=== PATIENT | female | born 1950 | race Caucasian/White ===

== ENCOUNTER 2024-06-16 16:06 | Inpatient (IN) | payer OTHER ==
--- OUTSIDE RECORDS SUMMARY | 2024-06-16 22:06 | XMS REPORT | Continuity of Care Document ---
Author Name Unknown Address [address] [facility]. [address] [place] [address] [facility] [place] Address [address] [facility] [place] [address] Care Team Providers Care Field Hand Name Role Phone LILIANA MCFADDEN Primary Care Physician Unavaila Liliana Quiroga Attending Clinician Unavailab MADISON Fowler Attending Clinician Unavailab MADISON Fowler Attending Clinician Unavailab tavia MeyerF Attending Clinician Unavailable JANET DU Attending Clinician Unavailable Veronica Attending Clinician Unavailable LITA Attending Clinician Unavailable ELEONORA MCFADDEN Attending Clinician Unavaila ishmael MeyerS Attending Clinician Unavailable ALEJANDRA Attending Clinician Unavailable [place] Attending Clinician Unavailable PATITO CHEW Admitting Clinician Unavailable Yosi_F Admitting Clinician Unavailable Veronica Admitting Clinician Unavailable LITA Admitting Clinician Unavailable Yosi_S Admitting Clinician Unavailable ALEJANDRA Admitting Clinician Unavailable [place] Admitting Clinician Unavailable Payers Payer Name Policy Type Policy Number Effective Date Expirati on Date Source MEDICARE PART A \T\ B [id number] 2015 00:00:00 [facility] MEDICARE SUPPLEMENT [id number] 2024 00:00:00 [place] [id number] 2015 00:00:00 [facility] HEALTHCARE OPTIONS (MEDICARE SUPPLEMENT) [id number] 2018 00:00:00 [place] [employer] - RHC - FQHC [id number] 2015 00:00:00 Problems Condition Name Condition Details Condition Category Status Onset Date Resolution Date Last Treatment Date Treating Clinician Comments Source Statins contraindi cated Statins Contraindi cated Problem Active 2021-04 00:00: 00 [facility] Lumbago with sciatica Lumbago with Sciatica Problem Active 11-30 00:00: 00 [facility] Allergies, Adverse Reactions, Alerts Allergy Name Allergy Type Status Severity Reaction(s) Onset Date Inactive Date Treating Clinician Comments Source IODINE DRUG INGREDI Active Unknown-Cmnt 3- 00:00: 00 [facility] TRAMADOL DRUG INGREDI Active Unknown-Cmnt 3- 00:00: 00 [facility] STATINS- HMG-COA REDUCTAS E INHIBITO RS Allergy to substanc e Active Myalgias (muscle pain) [facility] IODINATE D CONTRAST MEDIA Allergy to substanc e Active Moderate severity, Moderate to severe Rash, Respiratory distress [facility] Tramadol Allergy to substanc e Active [facility] Social History Smoking Status Start Date Stop Date Source Former Smoker [facility] Medications Ordered Medication Name Filled Medication Name Start Date Stop Date Current Medication? Ordering Clinician Indication Dosage Frequency Signature (SIG) Comments Components Source escitalopra m 10 mg tablet TAKE ONE (1) TABLET(S) BY MOUTH EVERY MORNING. escitalopra m 10 mg tablet TAKE ONE (1) TABLET(S) BY MOUTH EVERY MORNING. No escitalopr am 10 mg tablet TAKE ONE (1) TABLET(S) BY MOUTH EVERY MORNING. [facility] ezetimibe 10 mg tablet TAKE ONE (1) TABLET(S) BY MOUTH EVERY DAY. ezetimibe 10 mg tablet TAKE ONE (1) TABLET(S) BY MOUTH EVERY DAY. No ezetimibe 10 mg tablet TAKE ONE (1) TABLET(S) BY MOUTH EVERY DAY. [facility] pitavastati n calcium 2 mg tablet TAKE 1 TABLET BY MOUTH EVERY DAY FOR 30 DAYS, FOR HIGH CHOLESTEROL pitavastati n calcium 2 mg tablet TAKE 1 TABLET BY MOUTH EVERY DAY FOR 30 DAYS, FOR HIGH CHOLESTEROL No pitavastat in calcium 2 mg tablet TAKE 1 TABLET BY MOUTH EVERY DAY FOR 30 DAYS, FOR HIGH CHOLESTERO L [facility] Zyrtec 10 mg tablet Take 1 tablet every day by oral route for 90 days. Zyrtec 10 mg tablet Take 1 tablet every day by oral route for 90 days. No 1 Q1D Zyrtec 10 mg tablet Take 1 tablet every day by oral route for 90 days. [facility] azelastine 137 mcg (0.1 %) nasal spray SPRAY 2 SPRAYS EVERY DAY BY INTRANASAL ROUTE AT BEDTIME FOR 30 DAYS, FOR ALLERGIES. azelastine 137 mcg (0.1 %) nasal spray SPRAY 2 SPRAYS EVERY DAY BY INTRANASAL ROUTE AT BEDTIME FOR 30 DAYS, FOR ALLERGIES. No 2spray( s) Q1D azelastine 137 mcg (0.1 %) nasal spray SPRAY 2 SPRAYS EVERY DAY BY INTRANASAL ROUTE AT BEDTIME FOR 30 DAYS, FOR ALLERGIES. [facility] montelukast 10 mg tablet TAKE 1 TABLET BY MOUTH EVERY DAY montelukast 10 mg tablet TAKE 1 TABLET BY MOUTH EVERY DAY No montelukas t 10 mg tablet TAKE 1 TABLET BY MOUTH EVERY DAY [facility] Immunizations Ordered Immunization Name Filled Immunization Name Date Status Comments Source pneumococcal conjugate PCV 13 pneumococcal conjugate PCV 13 Unknown Completed [facility] Influenza vaccine, quadrivalent, adjuvanted Influenza vaccine, quadrivalent, adjuvanted Unknown Completed [facility] influenza, high dose seasonal influenza, high dose seasonal Unknown Completed [facility] influenza, unspecified formulation influenza, unspecified formulation Unknown Completed [facility] influenza nasal, unspecified formulation influenza nasal, unspecified formulation Unknown Completed [facility] influenza, injectable, quadrivalent influenza, injectable, quadrivalent Unknown Completed [facility] Vital Signs Vital Name Observation Time Observation Value Comments S ource BMI (Body Mass Index) 2024-01-28 00:00:00 22.4 kg/m2 [facility] Body Weight 2024-01-28 00:00:00 1896 [oz_av] [facility] BP Systolic 2024-01-28 00:00:00 148 mm[Hg] [facility] Height 2024-01-28 00:00:00 61 [in_i] [facility] BP Diastolic 2024-01-28 00:00:00 78 mm[Hg] [facility] BP Diastolic 2023-10-03 00:00:00 69 mm[Hg] [facility] BP Systolic 2023-10-03 00:00:00 130 mm[Hg] [facility] Body Weight 2023-10-03 00:00:00 2018 [oz_av] [facility] Height 2023-10-03 00:00:00 61 [in_i] [facility] BMI (Body Mass Index) 2023-10-03 00:00:00 23.8 kg/m2 [facility] Body Weight 2023-09-12 00:00:00 1984 [oz_av] [facility] Height 2023-09-12 00:00:00 61 [in_i] [facility] BMI (Body Mass Index) 2023-09-12 00:00:00 23.4 kg/m2 [facility] BP Systolic 2023-07-20 00:00:00 139 mm[Hg] [facility] Height 2023-07-20 00:00:00 61 [in_i] [facility] BMI (Body Mass Index) 2023-07-20 00:00:00 23.1 kg/m2 [facility] Body Weight 2023-07-20 00:00:00 1952 [oz_av] [facility] BP Diastolic 2023-07-20 00:00:00 76 mm[Hg] [facility] BP Systolic 2023-05-28 00:00:00 130 mm[Hg] [facility] BP Diastolic 2023-05-28 00:00:00 67 mm[Hg] [facility] BMI (Body Mass Index) 2023-05-28 00:00:00 23.3 kg/m2 [facility] Body Weight 2023-05-28 00:00:00 1969 [oz_av] [facility] Height 2023-05-28 00:00:00 61 [in_i] [facility] Body Weight 2023-04-25 00:00:00 1927 [oz_av] [facility] BP Systolic 2023-04-25 00:00:00 131 mm[Hg] [facility] BMI (Body Mass Index) 2023-04-25 00:00:00 22.8 kg/m2 [facility] Height 2023-04-25 00:00:00 61 [in_i] [facility] BP Diastolic 2023-04-25 00:00:00 67 mm[Hg] [facility] BP Diastolic 2022-10-11 00:00:00 73 mm[Hg] [facility] Height 2022-10-11 00:00:00 61 [in_i] [facility] BMI (Body Mass Index) 2022-10-11 00:00:00 22.9 kg/m2 [facility] BP Systolic 2022-10-11 00:00:00 113 mm[Hg] [facility] Body Weight 2022-10-11 00:00:00 1937 [oz_av] [facility] BP Diastolic 2022-05-18 00:00:00 80 mm[Hg] [facility] Height 2022-05-18 00:00:00 61 [in_i] [facility] BMI (Body Mass Index) 2022-05-18 00:00:00 22.8 kg/m2 [facility] BP Systolic 2022-05-18 00:00:00 130 mm[Hg] [facility] Body Weight 2022-05-18 00:00:00 1934.4 [oz_av] [facility] BP Diastolic 2022-05-04 00:00:00 79 mm[Hg] [facility] Height 2022-05-04 00:00:00 61 [in_i] [facility] BMI (Body Mass Index) 2022-05-04 00:00:00 23.2 kg/m2 [facility] BP Systolic 2022-05-04 00:00:00 135 mm[Hg] [facility] Body Weight 2022-05-04 00:00:00 1964.8 [oz_av] [facility] BP Diastolic 2022-03-13 00:00:00 84 mm[Hg] [facility] Height 2022-03-13 00:00:00 61 [in_i] [facility] BMI (Body Mass Index) 2022-03-13 00:00:00 23.1 kg/m2 [facility] BP Systolic 2022-03-13 00:00:00 142 mm[Hg] [facility] Body Weight 2022-03-13 00:00:00 1960 [oz_av] [facility] BP Diastolic 2022-03-06 00:00:00 79 mm[Hg] [facility] Height 2022-03-06 00:00:00 61 [in_i] [facility] BMI (Body Mass Index) 2022-03-06 00:00:00 23.3 kg/m2 [facility] BP Systolic 2022-03-06 00:00:00 138 mm[Hg] [facility] Body Weight 2022-03-06 00:00:00 1972 [oz_av] [facility] BP Diastolic 2022-02-28 00:00:00 70 mm[Hg] [facility] Height 2022-02-28 00:00:00 61 [in_i] [facility] BMI (Body Mass Index) 2022-02-28 00:00:00 23.3 kg/m2 [facility] BP Systolic 2022-02-28 00:00:00 125 mm[Hg] [facility] Body Weight 2022-02-28 00:00:00 1972 [oz_av] [facility] BP Diastolic 2021-11-30 00:00:00 70 mm[Hg] [facility] Height 2021-11-30 00:00:00 61 [in_i] [facility] BMI (Body Mass Index) 2021-11-30 00:00:00 23.2 kg/m2 [facility] BP Systolic 2021-11-30 00:00:00 140 mm[Hg] [facility] Body Weight 2021-11-30 00:00:00 1968 [oz_av] [facility] BP Diastolic 2021-09-26 00:00:00 81 mm[Hg] [facility] Height 2021-09-26 00:00:00 61 [in_i] [facility] BMI (Body Mass Index) 2021-09-26 00:00:00 23.6 kg/m2 [facility] BP Systolic 2021-09-26 00:00:00 135 mm[Hg] [facility] Body Weight 2021-09-26 00:00:00 2000 [oz_av] [facility] Height 2021-04-07 00:00:00 61 [in_i] [facility] BMI (Body Mass Index) 2021-04-07 00:00:00 22.9 kg/m2 [facility] Body Weight 2021-04-07 00:00:00 1936 [oz_av] [facility] Height 2021-03-31 00:00:00 61 [in_i] [facility] BMI (Body Mass Index) 2021-03-31 00:00:00 22.9 kg/m2 [facility] Body Weight 2021-03-31 00:00:00 1936 [oz_av] [facility] BP Diastolic 2021-02-14 00:00:00 75 mm[Hg] [facility] Height 2021-02-14 00:00:00 61 [in_i] [facility] BMI (Body Mass Index) 2021-02-14 00:00:00 23 kg/m2 [facility] BP Systolic 2021-02-14 00:00:00 139 mm[Hg] [facility] Body Weight 2021-02-14 00:00:00 1945 [oz_av] [facility] BP Diastolic 2020-02-11 00:00:00 67 mm[Hg] [facility] Height 2020-02-11 00:00:00 61 [in_i] [facility] BMI (Body Mass Index) 2020-02-11 00:00:00 23.1 kg/m2 [facility] BP Systolic 2020-02-11 00:00:00 138 mm[Hg] [facility] Body Weight 2020-02-11 00:00:00 1954 [oz_av] [facility] BP Diastolic 2019-09-22 00:00:00 72 mm[Hg] [facility] Height 2019-09-22 00:00:00 61 [in_i] [facility] BMI (Body Mass Index) 2019-09-22 00:00:00 22.2 kg/m2 [facility] BP Systolic 2019-09-22 00:00:00 109 mm[Hg] [facility] Body Weight 2019-09-22 00:00:00 1881 [oz_av] [facility] BP Diastolic 2019-03-25 00:00:00 71 mm[Hg] [facility] Height 2019-03-25 00:00:00 61 [in_i] [facility] BMI (Body Mass Index) 2019-03-25 00:00:00 22.1 kg/m2 [facility] BP Systolic 2019-03-25 00:00:00 114 mm[Hg] [facility] Body Weight 2019-03-25 00:00:00 1872 [oz_av] [facility] BP Diastolic 2019-02-26 00:00:00 79 mm[Hg] [facility] Height 2019-02-26 00:00:00 61 [in_i] [facility] BMI (Body Mass Index) 2019-02-26 00:00:00 21.9 kg/m2 [facility] BP Systolic 2019-02-26 00:00:00 133 mm[Hg] [facility] Body Weight 2019-02-26 00:00:00 1856 [oz_av] [facility] BP Diastolic 2018-11-04 00:00:00 71 mm[Hg] [facility] Height 2018-11-04 00:00:00 61 [in_i] [facility] BMI (Body Mass Index) 2018-11-04 00:00:00 20.5 kg/m2 [facility] BP Systolic 2018-11-04 00:00:00 117 mm[Hg] [facility] Body Weight 2018-11-04 00:00:00 1734.4 [oz_av] [facility] BP Diastolic 2018-09-09 00:00:00 73 mm[Hg] [facility] Height 2018-09-09 00:00:00 61 [in_i] [facility] BMI (Body Mass Index) 2018-09-09 00:00:00 20.8 kg/m2 [facility] BP Systolic 2018-09-09 00:00:00 106 mm[Hg] [facility] Body Weight 2018-09-09 00:00:00 1760 [oz_av] [facility] BP Diastolic 2018-08-27 00:00:00 60 mm[Hg] [facility] Height 2018-08-27 00:00:00 61 [in_i] [facility] BMI (Body Mass Index) 2018-08-27 00:00:00 21.4 kg/m2 [facility] BP Systolic 2018-08-27 00:00:00 108 mm[Hg] [facility] Body Weight 2018-08-27 00:00:00 1815 [oz_av] [facility] BP Diastolic 2018-08-01 00:00:00 69 mm[Hg] [facility] Height 2018-08-01 00:00:00 61 [in_i] [facility] BMI (Body Mass Index) 2018-08-01 00:00:00 21.1 kg/m2 [facility] BP Systolic 2018-08-01 00:00:00 116 mm[Hg] [facility] Body Weight 2018-08-01 00:00:00 1785 [oz_av] [facility] Procedures Procedure Date / Time Performed Performing Clinician Source Cataract Surgery 2023-07-04 00:00:00 [facility] MAMMO, screening, digital, bilateral 2023-04-25 00:00:00 [facility] MAMMO, screening, digital, bilateral 2022-10-11 00:00:00 [facility] US, liver 2022-03-06 00:00:00 [facility] DEXA 2022-02-28 00:00:00 [facility] MAMMO, screening, digital, bilateral 2021-02-14 00:00:00 [facility] MAMMO, screening, digital, bilateral 2019-09-22 00:00:00 [facility] ECG WITH INTERPRETATION 12 LEADS 2018-08-01 00:00:00 [facility] XR, chest 2018-08-01 00:00:00 [facility] Appendectomy [facility] Thumb Surgery [facility] Hysterectomy [facility] Complete Repair of Rotator Cuff [facility] Knee Arthroscopy/surgery [facility] Surgical Procedure on Cervical Spine [facility] Examination of Lumbar Spine [facility] Back Surgery [facility] Encounters Start Date/Time End Date/Time Encounter Type Admission Type Attending Clinicians Care Facility Care Department Encounter ID Source 2022-12-01 14:00:00 Inpatient Liliana Angeles [facility] [id number] [facility] 2022-11-23 11:30:00 Inpatient Liliana Angeles [facility] [id number] [facility] 2022-03-24 09:00:00 Inpatient LILIANA ANGELES [facility] [id number] [facility] 2022-03-17 09:00:00 Inpatient LILIANA ANGELES [facility] [id number] [facility] 2022-03-13 14:00:00 Inpatient LILIANA ANGELES [facility] [id number] [facility] 2024-06-12 14:42:00 2024-06-16 20:25:00 Inpatient MADISON DAVIS TIMOMADISON DUARTE [facility] [id number] [facility] 2024-01-28 00:00:00 2024-01-28 00:00:00 Azucena Stanley PA-C: [address], [address], [place] [id number] , Ph. [facility] [id number] 1021 [facility] 2023-10-05 08:18:00 2023-10-05 08:18:00 Outpatient LILIANA ANGELES [facility] [id number] [facility] 2023-10-03 00:00:00 2023-10-03 00:00:00 Liliana Mcfadden MD: [place] [phone] , Ph. [facility] 0626 [facility] 2023-09-12 00:00:00 2023-09-12 00:00:00 Areli Beck, NICKER AND BREAKER: [address], [address], [place] [address] , Ph. [facility] 0605 [facility] 2023-07-20 00:00:00 2023-07-20 00:00:00 Tatiana Saldivar, NICKER AND BREAKER: [address], [address], [place] [address] , Ph. Claireiga_F [facility] [id number] [facility] 2023-05-28 00:00:00 2023-05-28 00:00:00 Outpatient Neelauniga_F [facility] [id number] [facility] 2023-05-28 00:00:00 2023-05-28 00:00:00 Liliana Mcfadden MD: Cassandra Jarrett, [place] [address] , Ph. [facility] [id number] [facility] 2023-05-25 00:00:00 2023-05-25 00:00:00 Outpatient Zuniga_F [facility] [id number] [facility] 2023-04-25 00:00:00 2023-04-25 00:00:00 Outpatient Zuniga_F [facility] [id number] [facility] 2023-04-25 00:00:00 2023-04-25 00:00:00 Liliana Mcfadden MD: [place] [address] , Ph. [facility] [id number] [facility] 2023-04-20 07:42:00 2023-04-20 07:42:00 Outpatient LILIANA ANGELES [facility] [id number] [facility] 2022-11-27 12:10:00 2022-11-27 12:10:00 Outpatient TUNDE MCFADDENLILIANA [facility] [id number] [facility] 2022-11-16 11:05:00 2022-11-16 11:05:00 Outpatient JANET HICKEY [facility] [id number] [facility] 2022-10-31 07:53:00 2022-10-31 07:53:00 Outpatient TUNDE MCFADDEN LILIANA [facility] [id number] [facility] 2022-10-25 07:58:00 2022-10-25 07:58:00 Outpatient LILIANA ANGELES [facility] [id number] [facility] 2022-10-11 00:00:00 2022-10-11 00:00:00 [place] [id number] [facility] 2022-10-11 00:00:00 2022-10-11 00:00:00 Liliana Mcfadden MD: [address], [address], [place] [address] , [facility]. [facility] [id number] [facility] 2022-08-21 00:00:00 2022-08-21 00:00:00 Outpatient Koudela_A [facility] [id number] [facility]ana [facility] 2022-08-03 00:00:00 2022-08-03 00:00:00 Outpatient AMBREEN_[facility] [id number] [facility] 2022-05-18 00:00:00 2022-05-18 00:00:00 Azucena Stanley PA-C: [address], [place] [address] , Ph. [facility] [id number] [facility] 2022-05-08 00:00:00 2022-05-08 00:00:00 Outpatient Koudela_A [facility] [id number] [facility] 2022-05-04 00:00:00 2022-05-04 00:00:00 Outpatient Koudela_A [facility] [id number] [facility] 2022-05-04 00:00:00 2022-05-04 00:00:00 Azucena Stanley PA-C: [address], [place] [address] , Ph. [facility] [id number] [facility] 2022-03-28 10:11:00 2022-03-28 10:11:00 Outpatient LILIANA ANGELES [facility] [id number] [facility] 2022-03-20 13:51:00 2022-03-20 13:51:00 Outpatient LILIANA ANGELES [facility] [id number] [facility] 2022-03-13 00:00:00 2022-03-13 00:00:00 Outpatient Koudela_[place] [facility] [place] [id number] [facility] 2022-03-13 00:00:00 2022-03-13 00:00:00 Azucena Stanley PA-C: [address], [place] [address] , Ph. [facility] [id number] [facility] 2022-03-08 00:00:00 2022-03-08 00:00:00 Outpatient Zuniga_F [facility] [id number] [facility] 2022-03-06 00:00:00 2022-03-06 00:00:00 Outpatient Zuniga_F [facility] G [id number] [facility] 2022-03-06 00:00:00 2022-03-06 00:00:00 Liliana Mcfadden MD: [address], [place] [address] , Ph. [facility] [id number] [facility] 2022-02-28 10:32:00 2022-02-28 10:32:00 Outpatient LILIANA ANGELES [facility] [id number] [facility] 2022-02-28 00:00:00 2022-02-28 00:00:00 Outpatient Zuniga_F [facility] [id number] [facility] 2022-02-28 00:00:00 2022-02-28 00:00:00 Liliana Mcfadden MD: [address], [place] [address] , Ph. [facility] [id number] [facility] 2022-01-10 07:15:00 2022-02-06 00:01:00 Outpatient ELEONORA ANGELES [facility] [id number] [facility] 2022-01-05 09:00:00 2022-01-06 00:01:00 Outpatient ELEONORA ANGELES [facility] [id number] [facility] 2021-12-14 00:00:00 2021-12-14 00:00:00 Outpatient Zuniga_F [facility] [id number] [facility] 2021-11-30 00:00:00 2021-11-30 00:00:00 WILLIAM Hernandez: [address], [place] [address] , Ph. Colea_S [facility] 0824 [facility] 2021-09-28 11:41:00 2021-09-28 11:41:00 Outpatient Koudela_A [facility] [id number] [facility] 2021-09-26 00:00:00 2021-09-26 00:00:00 Azucena Stanley PA-C: [address], [place] [address] , Ph. Koudela_A [facility] 0620 [facility] 2021-04-13 08:50:00 2021-04-13 08:50:00 Outpatient Koudela_A [facility] [id number] [facility] 2021-04-07 00:00:00 2021-04-07 00:00:00 Liliana Mcfadden MD: [address], [place] [address] , Ph. Yandyla_A [facility] 1230 [facility] 2021-03-31 00:00:00 2021-03-31 00:00:00 Azucena Stanley PA-C: [address], [place] [address] , Ph. Yandyla_A [facility] 1223 [facility] 2021-03-10 09:25:00 2021-03-10 09:25:00 Outpatient LILIANA ANGELES [facility] [id number] [facility] 2021-03-02 01:52:00 2021-03-02 01:52:00 Outpatient ALEJANDRA QUINTANILLA [facility] [id number] [facility] 2021-02-23 08:10:00 2021-02-23 08:10:00 Outpatient LILIANA ANGELES [facility] [id number] [facility] 2021-02-14 00:00:00 2021-02-14 00:00:00 Liliana Mcfadden MD: [address], [place] [address] , Ph. Yosi_F [facility] [address] [facility] 2020-02-25 02:44:00 2020-02-25 02:44:00 Outpatient Colea_F [facility] [facility] 2020-02-11 00:00:00 2020-02-11 00:00:00 Liliana Mcfadden MD: [address], [place] [address] , Ph. Neelapattiigandra_Claudio [facility] [facility] 2020-02-10 04:20:00 2020-02-10 04:20:00 Outpatient catherine_F [facility] [address] [facility] 2019-11-04 00:00:00 2019-11-04 00:00:00 Liliana Mcfadden MD: [address], [place] [address] , Ph. [facility] [address] [facility] 2019-09-24 14:58:00 2019-09-24 14:58:00 Outpatient TUNDE MCFADDEN [facility] [id number] [facility] 2019-09-22 00:00:00 2019-09-22 00:00:00 Liliana Mcfadden MD: [address], [place] [address] , [facility]. [facility] 2019-09-15 07:30:00 2019-09-15 07:30:00 Outpatient JANET [facility] [id number] [facility] 2019-03-25 00:00:00 2019-03-25 00:00:00 Liliana Mcfadden MD: [address], [place] [address] , Ph. [facility] [address] [facility] 2019-03-19 08:11:00 2019-03-19 08:11:00 Outpatient TUNDE MCFADDEN [facility] [id number] [facility] 2019-02-26 00:00:00 2019-02-26 00:00:00 Tatiana Saldivar, [employer]: [address], [place] [address] , Ph. [facility] 1120 [facility] 2018-11-04 00:00:00 2018-11-04 00:00:00 Liliana Mcfadden MD: [address], [place] [address] , Ph. [facility] 0729 [facility] 2018-09-09 00:00:00 2018-09-09 00:00:00 Liliana Mcfadden MD: [address], [place] [address] , Ph. [facility] 0603 [facility] 2018-09-04 09:23:00 2018-09-04 09:23:00 Outpatient TUNDE MCFADDEN [facility] [id number] [facility] 2018-08-27 00:00:00 2018-08-27 00:00:00 Areli Beck [employer]: [address], [place] [address] , Ph. [facility] 0521 [facility] 2018-08-06 08:02:00 2018-08-06 08:02:00 [facility]patient [facility] [id number] [facility] 2018-08-01 00:00:00 2018-08-01 00:00:00 Liliana Mcfadden MD: [address], [place] [address] , Ph. [facility] [address] 0425 [facility] Results Test Description Test Time Test Comments Results Result Co mments Source [facility] [id number] 14:00:00* Test Item Value Reference Range Interpretation Comme nts cholesterol level (test code = cholesterol level) 226 mg/dL 150-200 H triglycerides level (test co de = triglycerides level) 163 mg/dL <150 H HDL cholesterol (test code = HDL cholesterol) 55 mg/dL >65 L Cholesterol in LDL [Mass/vol ume] in Serum or Plasma (test code = 2089-1) 153 mg/dL <100 H cholesterol risk ratio (test code = cholesterol risk ratio) 4.109 [facility] [id number] 13:13:00* Test Item Value Reference Range Interpretation Comme nts Hemoglobin A1c/Hemoglobin.to austen in Blood (test code = 4548-4) 5.3 % 4.0-6.0 [facility] Hospitalthyroid stimulating hormone [id number] 12:53:00* Test Item Value Reference Range Interpretation Comme nts thyroid stimulating hormone L (test code = thyroid stimulating hormone L) 1.41 uIU/mL 0.36-3.74 [facility] Hospitalculture,urine pres id [id number] 12:18:00* Test Item Value Reference Range Interpretation Comme nts culture,urine (test code = culture,urine) specimen has been received in lab and IS in progress. [facility] [id number] 12:09:00* Test Item Value Reference Range Interpretation Comme nts color, urine (test code = color, urine) light yellow appearance, urine (test code = appearance, urine) clear clear urine glucose (test code = urine glucose) negative negative bilirubin, urine (test code = bilirubin, urine) negative negative ketone, urine (test code = ketone, urine) negative negative specific gravity,urine (test code = specific gravity,urine) 1.024 1.003-1.030 blood urine (test code = blo od urine) negative negative pH,urine (test code = pH,urine) 5.500 5-9 protein urine (UA) (test cod e = protein urine (UA)) negative negative urobilinogen, urine (test co de = urobilinogen, urine) normal 0.2-1.0 nitrate, urine (test code = nitrate, urine) negative negative urine leukocyte esterase (te st code = urine leukocyte esterase) 4+ negative A RBC, urine (test code = RBC, urine) 1-5 0-5 WBC, urine (test code = WBC, urine) 15-19 0-5 A epithelial cell (test code = epithelial cell) 1-5 0-5 bacteria, urine (test code = bacteria, urine) none detected none detect casts,urine (test code = casts,urine) 6-10 none detect A urine culture added? (test c ode = urine culture added?) yes [facility] W Auto Differential panel - [id number] 00:00:00 * Test Item Value Reference Range Interpretation Comme nts white blood count (test code = white blood count) 6.7 K/uL 4.0-11.5 red blood count (test code = red blood count) 5.13 M/uL 3.80-5.20 hemoglobin (test code = hemoglobin) 15.6 g/dL 10.5-15.7 hematocrit (test code = hematocrit) 46.8 % 34.0-50.0 mean corpuscular volume (ryan t code = mean corpuscular volume) 91.2 fL 86.0-100.0 mean corpuscular hemoglobin (test code = mean corpuscular hemoglobin) 30.4 pg 26.2-33.4 mean corpuscular HGB conc (t est code = mean corpuscular HGB conc) 33.3 g/dL 30.0-34.0 red cell distribution width (test code = red cell distribution width) 12.2 % 12.0-15.5 platelet count (test code = platelet count) 224 K/uL 165-450 mean platelet volume (test c ode = mean platelet volume) 10.7 fL 9.4-12.6 neutrophils % (test code = neutrophils %) 59.0 % 44.4-80.1 Ig% (test code = Ig%) 0.1 % 0.0-0.4 lymphocyte% (test code = lymphocyte%) 29.4 % 10.0-50.0 mono % (test code = mono %) 8.1 % 3.6-12.0 eos % (test code = eos %) 2.8 % 0.0-5.4 basophil % (test code = baso rex %) 0.6 % 0.1-1.2 absolute neutrophil count (t est code = absolute neutrophil count) 3.94 K/uL 1.56-6.13 Ig# (test code = Ig#) 0.01 K/uL 0.00-0.03 lymph # (test code = lymph #) 1.97 K/uL 1.18-3.74 mono # (test code = mono #) 0.54 K/uL 0.24-0.86 eos # (test code = eos #) 0.19 K/uL 0.04-0.36 basophil # (test code = baso rex #) 0.04 K/uL 0.01-0.08 NRBC% (test code = NRBC%) 0 /100 WBC 0-0.2 NRBC# (test code = NRBC#) 0 K/uL [facility], [id number] 14:27:00* Test Item Value Reference Range Interpretation Comme nts Strep Result (test code = St rep Result) negative [facility] GroupInfluenza virus A and B and SARS-CoV+SARS-CoV-2 (COVID- 19) Ag panel - Upper respiratory specimen byRapid [id number] 14:26:00 * Test Item Value Reference Range Interpretation Comme nts RAPID SARS COV (test code = RAPID SARS COV) negative RAPID FLU A (test code = RAP ID FLU A) negative RAPID FLU B (test code = RAP ID FLU B) negative [facility] virus A and B and SARS-CoV+SARS-CoV-2 (COVID- 19) Ag panel - Upper respiratory specimen byRapid [id number] 09:20:00 * Test Item Value Reference Range Interpretation Comme nts RAPID SARS COV (test code = RAPID SARS COV) negative RAPID FLU A (test code = RAP ID FLU A) negative RAPID FLU B (test code = RAP ID FLU B) negative [facility], [id number] 09:19:00* Test Item Value Reference Range Interpretation Comme nts Strep Result (test code = St rep Result) negative [facility] Hospitalhepat[facility] C virus [id number] 00:00:00* Test Item Value Reference Range Interpretation Comme nts hepatitis C virus antibody ( test code = hepatitis C virus antibody) < 0.1 0.0-0.9 [facility] W Auto Differential panel - [id number] 00:00:00 * Test Item Value Reference Range Interpretation Comme nts white blood count (test code = white blood count) 7.2 K/uL 4.0-11.5 red blood count (test code = red blood count) 5.07 M/uL 3.80-5.20 hemoglobin (test code = hemoglobin) 15.7 g/dL 10.5-15.7 hematocrit (test code = hematocrit) 47.1 % 34.0-50.0 mean corpuscular volume (ryan t code = mean corpuscular volume) 92.9 fL 86.0-100.0 mean corpuscular hemoglobin (test code = mean corpuscular hemoglobin) 31.0 pg 26.2-33.4 mean corpuscular HGB conc (t est code = mean corpuscular HGB conc) 33.3 g/dL 30.0-34.0 red cell distribution width (test code = red cell distribution width) 12.1 % 12.0-15.5 platelet count (test code = platelet count) 215 K/uL 165-450 mean platelet volume (test c ode = mean platelet volume) 10.8 fL 9.4-12.6 neutrophils % (test code = neutrophils %) 61.0 % 44.4-80.1 Ig% (test code = Ig%) 0.3 % 0.0-0.4 lymphocyte% (test code = lymphocyte%) 28.5 % 10.0-50.0 mono % (test code = mono %) 7.8 % 3.6-12.0 eos % (test code = eos %) 1.8 % 0.0-5.4 basophil % (test code = baso rex %) 0.6 % 0.1-1.2 absolute neutrophil count (t est code = absolute neutrophil count) 4.38 K/uL 1.56-6.13 Ig# (test code = Ig#) 0.02 K/uL 0.00-0.03 lymph # (test code = lymph #) 2.04 K/uL 1.18-3.74 mono # (test code = mono #) 0.56 K/uL 0.24-0.86 eos # (test code = eos #) 0.13 K/uL 0.04-0.36 basophil # (test code = baso rex #) 0.04 K/uL 0.01-0.08 NRBC% (test code = NRBC%) 0 /100 WBC 0-0.2 NRBC# (test code = NRBC#) 0 K/uL [facility] [id number] 00:00:00* Test Item Value Reference Range Interpretation Comme nts color, urine (test code = co kian, urine) light yellow appearance, urine (test code = appearance, urine) clear clear urine glucose (test code = u rine glucose) negative negative bilirubin, urine (test code = bilirubin, urine) negative negative ketone, urine (test code = ketone, urine) negative negative specific gravity,urine (test code = specific gravity,urine) 1.017 1.003-1.030 blood urine (test code = blo od urine) negative negative pH,urine (test code = pH,urine) 7.000 5-9 protein urine (UA) (test cod e = protein urine (UA)) negative negative urobilinogen, urine (test co de = urobilinogen, urine) normal 0.2-1.0 nitrate, urine (test code = nitrate, urine) negative negative urine leukocyte esterase (te st code = urine leukocyte esterase) negative negative [facility] [id number] 00:00:00* Test Item Value Reference Range Interpretation Comme nts Hemoglobin A1c/Hemoglobin.to austen in Blood (test code = 4548-4) 5.2 % 4.0-6.0 [facility] HospitalComprehensive metabolic 2000 panel - Serum or Plasma 2022-02-28 00:00:00* Test Item Value Reference Range Interpretation Comme nts glucose (test code = glucose) 97 mg/dL 82-115 blood urea nitrogen (test co de = blood urea nitrogen) 13 mg/dL 8-23 osmolality calculated,serum (test code = osmolality calculated,serum) 272 mOsm/kg 280-300 L creatinine (test code = creatinine) 0.58 mg/dL 0.50-0.90 glomerular filtration rate ( test code = glomerular filtration rate) > 60.00 BUN/creatinine ratio (test c ode = BUN/creatinine ratio) 22.4 12.0-20.0 H sodium level (test code = so dium level) 136 mmol/L 135-145 potassium level (test code = potassium level) 4.1 mmol/L 3.5-5.2 chloride level (test code = chloride level) 99 mmol/L 98-108 CO2 (test code = CO2) 25 mmol/L 21-32 anion gap (test code = anion gap) 16.1 mEq/L 12.0-20.0 calcium level (test code = calcium level) 9.9 mg/dL 8.8-10.2 total protein (test code = t otal protein) 7.8 g/dL 6.6-8.7 albumin (test code = albumin) 4.6 g/dL 3.5-5.2 globulin (test code = globulin) 3.2 g/dL 1.5-4.5 A/G ratio (test code = A/G ratio) 1.4 >1.0 bilirubin,total (test code = bilirubin,total) 0.5 mg/dL 0.0-1.2 AST/SGOT (test code = AST/SGOT) 37 U/L 15-32 H ALT/SGPT (test code = ALT/SGPT) 52 U/L 0-33 H alkaline phosphatase, total (test code = alkaline phosphatase, total) 94 U/L 35-105 [facility] [id number] 00:00:00* Test Item Value Reference Range Interpretation Comme nts cholesterol level (test code = cholesterol level) 299 mg/dL 150-200 H triglycerides level (test co de = triglycerides level) 256 mg/dL <150 H HDL cholesterol (test code = HDL cholesterol) 54 mg/dL >65 L Cholesterol in LDL [Mass/vol ume] in Serum or Plasma (test code = 2089-1) 214 mg/dL <100 H cholesterol risk ratio (test code = cholesterol risk ratio) 5.537 [facility] Hospitalthyroid stimulating hormone [id number] 00:00:00* Test Item Value Reference Range Interpretation Comme nts thyroid stimulating hormone L (test code = thyroid stimulating hormone L) 1.27 uIU/mL 0.36-3.74 [facility] HospitalThyroxine (T4) free [Mass/volume] in Serum or Plasma 2022-02-28 00:00:00* Test Item Value Reference Range Interpretation Comme nts free T4 (test code = free T4) 0.96 NG/dL 0.93-1.7 [facility]rap[facility] influenza virus A + B and SARS CoV + SARS CoV 2 Ag panel, IA, upper respiratory [id number] 13:26:00* Test Item Value Reference Range Interpretation Comme [facility] RAPID SARS COV (test code = RAPID SARS COV) positive RAPID FLU A (test code = RAP ID FLU A) negative RAPID FLU B (test code = RAP ID FLU B) negative [facility] strep group A, [id number] 11:36:00* Test Item Value Reference Range Interpretation Comme [facility] Strep Result (test code = St rep Result) negative [facility] W Auto Differential panel - [id number] 06:22:00 * Test Item Value Reference Range Interpretation Comme [facility] white blood count (test code = white blood count) 5.8 K/uL 4.0-11.5 red blood count (test code = red blood count) 4.71 M/uL 3.80-5.20 hemoglobin (test code = hemoglobin) 14.6 g/dL 10.5-15.7 hematocrit (test code = hematocrit) 43.5 % 34.0-50.0 MCV [Entitic volume] (test c ode = 09252-2) 92.4 fL 86-100 mean corpuscular hemoglobin (test code = mean corpuscular hemoglobin) 31.0 pg 26.2-33.4 mean corpuscular HGB conc (t est code = mean corpuscular HGB conc) 33.6 g/dL 30-34 red cell distribution width (test code = red cell distribution width) 12.1 % 12.0-15.5 platelet count (test code = platelet count) 201 K/uL 165-450 mean platelet volume (test c ode = mean platelet volume) 10.0 fL 9.4-12.6 Segmented neutrophils/100 leukocytes in Blood (test code = 43239-3) 59.5 % 44.4-80.1 Immature granulocytes [#/vol ume] in Blood (test code = 80878-2) 0.0 K/uL 0.0-0.03 lymphocyte% (test code = lymphocyte%) 29.7 % 10.0-50.0 mono % (test code = mono %) 7.4 % 3.6-12.0 eos % (test code = eos %) 2.9 % 0.0-5.4 Basophils/100 leukocytes in Unspecified specimen (test code = 91776-7) 0.3 % 0.1-1.2 Band form neutrophils [#/vol ume] in Blood (test code = 26859-4) 3.44 K/uL 1.56-6.13 Lymphocytes [#/volume] in Unspecified specimen by Automated count (test code = 73144-4) 1.7 K/uL 1.18-3.74 mono # (test code = mono #) 0.43 K/uL 0.24-0.86 eos # (test code = eos #) 0.17 K/uL 0.04-0.36 basophil # (test code = baso rex #) 0.02 K/uL 0.01-0.08 NRBC% (test code = NRBC%) 0 /100 WBC 0-0.2 NRBC# (test code = NRBC#) 0 K/uL [facility] HospitalDifferential panel, method unspecified - [id number] 06:22:00NeutrophilsBandLymphocyteAtypical LymphMonocyteEosinophilNucleated Red Blood CellPlatelet EstimatePlatelet MorphologyPolychromasiaAnisocytosisMataBatson Children's HospitalBasic metabolic 2000 panel - Serum or [id number] 06:22:00* Test Item Value Reference Range Interpretation Comme nts Glucose [Mass/volume] in Ser um or Plasma (test code = 2345-7) 103 mg/dL 82-115 Urea nitrogen [Mass/volume] in Serum or Plasma (test code = 3094-0) 13 mg/dL 8-23 osmolality calculated,serum (test code = osmolality calculated,serum) 280 mOsm/kg 280-300 creatinine (test code = creatinine) 0.6 mg/dL 0.50-0.90 glomerular filtration rate ( test code = glomerular filtration rate) >60.00 Urea nitrogen/Creatinine [Ma ss Ratio] in Serum or Plasma (test code = 3097-3) 21.7 12-20 H sodium level (test code = so dium level) 140 mmol/L 135-145 potassium level (test code = potassium level) 4.2 mmol/L 3.5-5.2 chloride level (test code = chloride level) 102 mmol/L 98-108 CO2 (test code = CO2) 27 mmol/L 21-32 anion gap (test code = anion gap) 15.2 mEq/L 12-20 calcium level (test code = calcium level) 9.8 mg/dL 8.8-10.2 [facility] 1995 panel - Serum or [id number] 06:22:00* Test Item Value Reference Range Interpretation Comme nts cholesterol level (test code = cholesterol level) 206 mg/dL 150-200 H triglycerides level (test co de = triglycerides level) 180 mg/dL <150 H HDL cholesterol (test code = HDL cholesterol) 53 mg/dL >65 L LDL cholesterol direct (test code = LDL cholesterol direct) 144 mg/dL <100 H cholesterol risk ratio (test code = cholesterol risk ratio) 3.886 [facility] HospitalComprehensive metabolic 2000 panel - Serum or Plasma 2019-03-19 07:25:00* Test Item Value Reference Range Interpretation Comme nts glucose (test code = glucose) 94 mg/dL 82-115 Urea nitrogen [Mass/volume] in Serum or Plasma (test code = 3094-0) 15 mg/dL 8-23 osmolality calculated,serum (test code = osmolality calculated,serum) 286 mOsm/kg 280-300 creatinine (test code = creatinine) 0.6 mg/dL 0.50-0.90 glomerular filtration rate ( test code = glomerular filtration rate) >60.00 Urea nitrogen/Creatinine [Ma ss Ratio] in Serum or Plasma (test code = 3097-3) 25.0 12-20 H sodium level (test code = so dium level) 143 mmol/L 135-145 Potassium [Moles/volume] in Body fluid (test code = 2821-7) 4.6 mmol/L 3.5-5.2 chloride level (test code = chloride level) 101 mmol/L 98-108 CO2 (test code = CO2) 27 mmol/L 21-32 anion gap (test code = anion gap) 19.6 mEq/L 12-20 calcium level (test code = calcium level) 9.8 mg/dL 8.8-10.2 total protein (test code = t otal protein) 7.5 g/dL 6.6-8.7 albumin (test code = albumin) 4.6 g/dL 3.5-5.2 globulin (test code = globulin) 2.9 gm/dL A/G ratio (test code = A/G ratio) 1.6 >1.0 bilirubin,total (test code = bilirubin,total) 0.5 mg/dL 0.0-1.2 AST/SGOT (test code = AST/SGOT) 28 U/L 15-32 Alanine aminotransferase [Enzymatic activity/volume] in Serum or Plasma (test code = 1742-6) 32 U/L 0-33 Alkaline phosphatase [Enzyma tic activity/volume] in Serum or Plasma (test code = 6768-6) 88 U/L 35-105 [facility] 1996 panel - Serum or [id number] 07:25:00* Test Item Value Reference Range Interpretation Comme nts cholesterol level (test code = cholesterol level) 227 mg/dL 150-200 H triglycerides level (test co de = triglycerides level) 237 mg/dL <150 H HDL cholesterol (test code = HDL cholesterol) 54 mg/dL >65 L LDL cholesterol direct (test code = LDL cholesterol direct) 162 mg/dL <100 H cholesterol risk ratio (test code = cholesterol risk ratio) 4.203 [facility] group A, [id number] 09:48:00* Test Item Value Reference Range Interpretation Comme nts Strep Result (test code = St rep Result) negative [facility] Hospitalcolon cancer screening, [id number] 12:27:00* Test Item Value Reference Range Interpretation Comme nts cologuard result (test code = cologuard result) negative not applicable [facility] GroupUrinalysis complete W Reflex Culture panel - Urine 2018-09-04 07:29:00* Test Item Value Reference Range Interpretation Comme nts Color of Urine by Auto (test code = 59032-8) light yellow Appearance of Urine (test co de = 5767-9) clear clear Glucose [Presence] in Urine by Automated test strip (test code = 29330-1) negative negative Bilirubin.total [Mass/volume ] in Urine (test code = 1978-6) negative negative Ketones [Mass/volume] in Uri ne by Automated test strip (test code = 83851-7) negative negative Specific gravity of Urine by Automated test strip (test code = 35399-9) 1.008 1.003-1.030 blood urine (test code = blo od urine) negative negative pH of Urine (test code = 2756-5) 6.000 5-9 protein urine (UA) (test cod e = protein urine (UA)) negative negative Urobilinogen [Presence] in Urine (test code = 95243-4) normal 0.2-1.0 Nitrite [Presence] in Urine by Test strip (test code = 5802-4) negative negative Leukocyte esterase [Presence ] in Urine by Automated test strip (test code = 27424-6) negative negative Erythrocytes [#/volume] in Urine by Automated count (test code = 798-9) <1 0-5 Leukocytes [#/area] in Urine sediment by Automated count (test code = 88170-4) <1 0-5 Epithelial cells [Presence] in Urine sediment by Light microscopy (test code = 52936-5) <1 0-5 Bacteria identified in Urine by Culture (test code = 630-4) none detected none detect Casts [#/area] in Urine sediment by Automated count (test code = 88472-5) none detected none detect urine culture added? (test c ode = urine culture added?) no [facility] GroupComplete blood count (hemogram) panel - Blood by Automated [id number] 06:15:00* Test Item Value Reference Range Interpretation Comme nts white blood count (test code = white blood count) 5.6 K/uL 4.0-11.5 red blood count (test code = red blood count) 4.70 M/uL 3.80-5.20 Hemoglobin [Mass/volume] in Blood (test code = 718-7) 14.1 g/dL 10.5-15.7 hematocrit (test code = hematocrit) 44.1 % 34.0-50.0 MCV [Entitic volume] (test c ode = 19033-4) 93.9 fL 78-98 MCH [Entitic mass] (test cod e = 34909-2) 30.1 pg 26.2-33.4 mean corpuscular HGB conc (t est code = mean corpuscular HGB conc) 32.1 g/dL 31.5-36.2 red cell distribution width (test code = red cell distribution width) 11.6 % 11.5-15.5 Platelets [#/volume] in Bloo d (test code = 96477-7) 204 K/uL 137-338 Platelet mean volume [Entiti c volume] in Blood (test code = 17093-3) 7.7 fL 8.4-11.8 L [facility] HospitalHemoglobin A1c [Mass/volume] in [id number] 06:15:00 * Test Item Value Reference Range Interpretation Comme nts Deprecated Hemoglobin A1c in Blood (test code = 06625-2) 5.2 % 4.0-6.0 [facility] HospitalComprehensive metabolic 2000 panel - Serum or Plasma 2018-08-06 06:15:00* Test Item Value Reference Range Interpretation Comme nts Glucose [Mass/volume] in Ser um or Plasma (test code = 2345-7) 95 mg/dL 82-115 Urea nitrogen [Mass/volume] in Serum or Plasma (test code = 3094-0) 16 mg/dL 8-23 Osmolality of Serum or Plasm a (test code = 2692-2) 284 280-300 creatinine (test code = creatinine) 0.7 mg/dL 0.50-0.90 glomerular filtration rate ( test code = glomerular filtration rate) >60.00 Urea nitrogen/Creatinine [Ma ss Ratio] in Serum or Plasma (test code = 3097-3) 22.9 12-20 H sodium level (test code = so dium level) 142 mmol/L 135-145 potassium level (test code = potassium level) 4.5 mmol/L 3.5-5.2 chloride level (test code = chloride level) 102 mmol/L 98-108 CO2 (test code = CO2) 26 mmol/L 21-32 anion gap (test code = anion gap) 18.5 mEq/L 12-20 calcium level (test code = c alcium level) 9.5 mg/dL 8.8-10.2 total protein (test code = t otal protein) 7.2 g/dL 6.6-8.7 albumin (test code = albumin) 4.3 g/dL 3.5-5.2 globulin (test code = globulin) 2.9 gm/dL A/G ratio (test code = A/G ratio) 1.5 >1.0 bilirubin,total (test code = bilirubin,total) 0.4 mg/dL 0.0-1.2 AST/SGOT (test code = AST/SGOT) 24 U/L 15-32 Alanine aminotransferase [Enzymatic activity/volume] in Serum or Plasma (test code = 1742-6) 13 U/L 0-33 Alkaline phosphatase [Enzyma tic activity/volume] in Serum or Plasma (test code = 6768-6) 79 U/L 35-105 [facility] 1996 panel - Serum or [id number] 06:15:00* Test Item Value Reference Range Interpretation Comme nts cholesterol level (test code = cholesterol level) 271 mg/dL 150-200 H triglycerides level (test co de = triglycerides level) 162 mg/dL <150 H HDL cholesterol (test code = HDL cholesterol) 52 mg/dL >65 L LDL cholesterol direct (test code = LDL cholesterol direct) 217 mg/dL <100 H cholesterol risk ratio (test code = cholesterol risk ratio) 5.211 [id number] 16:50:00* Test Item Value Reference Range Interpretation Comme nts EKG (test code = EKG) abnormal A [facility]
[2024-06-16 22:19] VITALS: BMI 21.7
[2024-06-16] MEDS ORDERED: ACETAMINOPHEN 500 MG TAB PO PRN (22:25)
[2024-06-16] MEDS ORDERED: ONDANSETRON 4 MG (ODT) TAB PO PRN (22:26)
[2024-06-16 22:40] LABS: Specific Gravity 1.008 (1.005-1.030); Sqamous Epithelial None Seen /HPF (None Seen); Urine Bacteria None Seen /HPF (<20); Urine Bilirubin NEGATIVE (Negative); Urine Blood Negative (Negative); Urine Clarity Clear (Clear); Urine Color Colorless (Yellow); Urine Culture Reflex Order NOT NEEDED; Urine Glucose NEGATIVE (Negative); Urine Ketones NEGATIVE (Negative); Urine Micro Reflex YN NO BILL MICROSCOPIC; Urine Nitrite NEGATIVE (Negative); Urine Protein NEGATIVE (Negative); Urine RBC <5 /HPF (None Seen); Urine Urobilinogen Normal (Normal); Urine WBC <5 /HPF (<5); Urine pH 7.5 (5.0-7.0)
[2024-06-16] MEDS ORDERED: DOCUSATE NA/SENNA CONC 1 TAB PO PRN (22:41)
[2024-06-16] MEDS: HYDROCODONE/APAP 5/325 MG TAB PO PRN (23:04)
[2024-06-17] MEDS: APIXABAN 2.5 MG TABLET PO SCH (07:14)
[2024-06-17] MEDS: methocarbamoL 750 MG TAB PO SCH (07:14)
[2024-06-17] MEDS: ESCITALOPRAM 20 MG TAB PO SCH (07:15)
[2024-06-17] MEDS: MONTELUKAST 10 MG TAB PO SCH (07:15)
[2024-06-17 07:43] LABS: Absolute Basophils 0.1 K/uL (0-0.5); Absolute Eosinophils 0.2 K/uL (0-0.5); Absolute Lymphocytes (CBC) 1.7 K/uL (0.7-4.9); Absolute Monocytes 0.6 K/uL (0.1-1.3); Absolute Neutrophil 5.2 K/uL (1.8-8.0); Albumin 3.1 g/dL (3.4-5.0); Basophils % 0.7 % (0-1.3); Hematocrit 38.4 % (36.0-45.0); Hemoglobin 13.1 g/dL (12.0-15.0); MCH 31.3 pg (27.0-35.0); MCHC 34.1 g/dL (32.0-36.0); MCV 91.8 fL (80-100); MPV 7.7 fL (7.6-11.3); Magnesium 2.4 mg/dL (1.6-2.4); Neutrophils % 66.3 % (41.7-73.7); Nucleated Red Blood Cells % 0.2 % (0-0); Platelets 255 thou/uL (152-406); Prealbumin 14.3 mg/dL (20-40); RBC Red Blood Cell Count 4.18 M/uL (3.86-4.86); Red Cell Distribution Width 12.8 % (12.1-15.2)
[2024-06-17] MEDS: GABAPENTIN 300 MG CAP PO SCH (09:34)
[2024-06-17] MEDS: EZETIMIBE 10 MG TAB PO SCH (20:35)
[2024-06-17] MEDS: DOCUSATE NA/SENNA CONC 1 TAB PO PRN (20:36)
[2024-06-17] MEDS: MELATONIN 3 MG TABLET PO PRN (20:36)
[2024-06-17] MEDS: MAGNESIUM HYDROXIDE 8% 30 ML PO PRN (20:37)
--- NOTE | 2024-06-17 22:49 | HP ---
Date of Admission: 06/16/2024 Time Of Service: 1:00 p.m. Chief Complaint: "I fell and broke my left hip." History Of Present Illness: Ms. Espinoza is a 73-year-old patient with dyslipidemia, anxiety, who was on a cruise ship out of [place] and about an hour prior to the ship leaving, she tripped on an obje ct, fell, and hit the left lower hip and had severe pain. She was taken off the ship, sent to [facility] where workup showed a left femoral neck fracture. She was taken to surgery on 06/13/2024, had a closed reduction and percutaneous pinning of the left lower fracture site. Postop eratively, she had leukocytosis, elevated liver enzymes, and anxiety. In addition, there was constip ation and postop pain. She received antibiotics, DVT prophylaxis, fluids, and medication for anxiety . She also received some stool softener for constipation. Her comorbid conditions were also address ed. She was evaluated by therapy service and found to have significant limitations in mobility, thomas sfers, and performance of activities of daily living. She was therefore determined to be a good cand idate for aggressive inpatient rehabilitation. Prior to her fall, she was fully independent going to the gym 3 times a week, thriving independently, doing all of her activities of daily living without limitations. Currently, only 95 feet able to walk due to limitation due to pain. She is now admitte d to the inpatient rehabilitation unit for physical and occupational therapy to help her return to he r prior level of functioning and reduce risk of rehospitalization. Past Medical History: As noted above. Past Surgical History: Right rotator cuff surgery, back surgery, neck surgery. Allergies: IODINE AND TRAMADOL. Current Medications: Tylenol Extra Strength 500 mg every 6 hours as needed, Eliquis 2.5 mg twice grace ly, Lexapro 10 mg daily, Zetia 10 mg at bedtime, gabapentin 300 mg 3 times daily, [place] 5/325 every 6 hours as needed, Milk of Magnesia 30 mL daily, melatonin 3 mg at bedtime, Robaxin 750 mg twice daily , Singulair 10 mg daily, Zofran 4 mg every 6 hours as needed, Senokot S 2 at bedtime. Laboratory Studies: Complete blood count with differential, completely normal white blood cell count 7.8, hemoglobin of 13.1, platelets are 255. Sodium 135, potassium 4.0, chloride 101, carbon dioxide 29, BUN 10, creatinine 0.59, glucose 108, calcium 9.0. Magnesium 2.4. Albumin 3.1, prealbumin 14.3 . Urinalysis from 06/16/2024 is completely normal with pH of 7.3, is slightly elevated. X-ray/imaging: As noted, she did have a hip x-ray on 06/12 shows mildly displaced fracture of the le ft femoral neck. Alignment maintained at bilateral hips, sacroiliac joints, and pubic symphysis. Pe lvic phleboliths are noted. Chest x-ray on 06/12, cardiomediastinal silhouette is normal. Lungs are clear. She is status post ACDF in the lower cervical region. Family History: Noncontributory. Social History: No recent alcohol, tobacco, or IV drug use. The patient lives in single family home with family. Review of Systems: Again, some mild left hip pain when mobilizing at most, however, goes up to about 6-7, when trying to ambulate, which she is weightbearing as tolerated status and some mild myalgias, arthralgias. Other swain, no fevers, chills. No nausea, vomiting. Some mild constipation and no other positives on the systems review. Current Level Of Functioning: Currently, Ms. Espinoza is at the level of setup assistance for eating a nd grooming; moderate assistance for bathing; contact guard for upper body dressing; moderate assista nce for lower body dressing and donning and doffing of footwear; moderate assistance for transfer fro m bed to chair, to toilet, to shower; and ambulation, moderate assistance. She did ambulate 95 feet. Physical Examination: Vital Signs: Blood pressure is 136/60, pulse 75, respiratory rate 18, temperature 97.8, oxygen satur ation 96%. Weight 150 pounds, height 5 feet 1 inch, BMI 21.7. General: Ms. Espinoza is resting comfortably in bed. She is in no acute distress. HEENT: She appears normocephalic, atraumatic. Sclerae anicteric. Oropharynx pink, moist. Neck: Supple. Chest: Clear. Heart: Regular. Extremities: She has no significant clubbing, cyanosis, or edema in the lower extremities. Skin: Left surgical hip surgical site has good hemostasis. Rehab And Medical Assessment And Plan: Ms. Espinoza is a 73-year-old patient admitted to the inpatient rehabilitation unit with impairment category 07, fracture of the left lower extremity. The etiologi c diagnosis is 11.17, unilateral hip fracture. Etiologic diagnosis, left femoral neck fracture. Com orbidities are anxiety, dyslipidemia, postoperative pain, postoperative anemia, and constipation post operatively. Plan: She will have physical and occupational therapy 3 hours a day, 5 of 7 days. If need be, Isis buck will evaluate the patient and see her half an hour 5 days a week basis. She will continue with com orbid condition medications, Eliquis 2.5 mg twice daily for DVT risk reduction, [place] for pain, regul ar Tylenol as well for pain, Lexapro for depression, gabapentin for neuropathic pain, Milk of Magnesi a for constipation along with Senokot S. she has Zofran for nausea, Singulair for allergies, Robaxin for muscle spasms, melatonin for insomnia. Comorbidities That Are Impacting Rehabilitation: She does have some mild constipation that will be a ddressed with multiple modalities if need be from upper end to lower end. She has done actually very well prior to being hospitalized with lots of very good exercise going. She did have previously an ACDF and will be at high risk of injury if she is to fall, so fall precautions to be strictly adhered . Rehab Specific Plan: Ms. Espinoza will have physical and occupational therapy to help her with improvi ng her ability to transfer from bed to chair, to toilet; getting on and off the toilet; in and out of shower; and to dress upper and lower body; donning and doffing the footwear. She will have occupati onal therapy to also help complete all activities of daily living safely. Ms. Espinoza has a good understanding of the process of admission to the inpatient rehabilitation unit and how she will benefit from physical, occupational, and speech therapy. She will have 24 hours a d ay, 7 days a week skilled rehabilitation nursing, daily physician evaluation and management, and formerly [facility] service evaluation and management for discharge planning, home equipment, and to continue therapy. Barriers To Discharge: Currently, she has no significant barriers to discharge. Plan will be to go home with family and continue therapy via outpatient actually as she is doing excellent, ready to beg in with and has very good baseline physical capacity. Length Of Stay: About 10 days. Disposition: Back to home to continue therapy via outpatient therapy. Prognosis: Good. Code Status: Full code. Rehab Specific Goals: 1. Ms. Espinoza will become independent with upper and lower body dressing, donning and doffing of foot wear. 2. She will be able to ambulate 250 feet with a rolling walker with independence. 3. Mobilize wheelchair 250 feet with independence. 4. Up and down 10 steps with independence. 5. Perform all activities of daily living with independence and continue to perform cognitive functio merry independently. The above goals were reviewed with Ms. Espinoza and she is in agreement. By signing this document, I acknowledge I personally performed a full physical examination on Ms. Bird rao no later than 24 hours after her admission to the inpatient rehabilitation unit and determined th at she is able to tolerate the above course of treatment at an intensive level for reasonable period of time. A detailed individualized plan of care for her will be completed by hospital day 4 based on preadmission screen, history and physical, and therapy evaluations. FOREIGN Voice ID: [id number]
--- NOTE | 2024-06-19 00:40 | PN ---
Date of Progress Note: 06/18/2024 Time Of Service: 1:40 p.m. Subjective: Ms. Espinoza is doing excellent. She is in bed and lying in therapy. She denies any sign ificant pain in the left femoral neck surgical site where she had the fracture. She has no new compl aints. Objective: No fevers, chills, nausea, vomiting, myalgias, arthralgias. No rash. Physical Examination: Vital Signs: Blood pressure 132/62, pulse 79, respiratory rate 16, temperature 98.2, oxygen saturati on 97%. General: Again, Ms. Espinoza is lying comfortably in bed. She is in no acute distress. HEENT: She is normocephalic, atraumatic. Sclerae anicteric. Oropharynx pink and moist. Neck: Supple. Chest: Clear. Extremities: She has no significant edema in the left lower extremity, where she has the surgical si te in the left hip region. Laboratory Studies: Complete blood count with differential is completely normal. Sodium 135, potass ium 4.0, carbon dioxide 29, BUN 10, creatinine 0.59, prealbumin 14.3, albumin 3.1, magnesium 2.4, mckenzie cium 9.0, glucose 108. X-ray/imaging: No new x-rays or imaging. Medications: Tylenol Extra Strength 500 mg every 6 hours as needed, [place] 5/325 every 6 hours as nee ded, Eliquis 2.5 mg twice daily, Lexapro 10 mg daily, Zetia 10 mg at bedtime, gabapentin 300 mg 3 nancie es daily, milk of magnesia 30 mL daily, melatonin 3 mg at bedtime, Robaxin 750 mg twice daily, Singul air 10 mg daily, Zofran 4 mg every 6 hours as needed, Senokot-S 2 at bedtime. Progress Made With Physical And Occupational Therapy: With physical therapy today, she did ambulate 150 feet, 200 feet, and 75 feet with contact guard assistance. She did [id number] transfers with c ontact guard assistance. With occupational therapy, bed mobility performed multiple times, rolling w alker to toilet, and she did so with supervision. She also ambulated another 250 feet and 100 feet w ith a rolling walker with standby assistance, up and down 15 steps with standby assistance as well. Assessment: Ms. Espinoza is a 73-year-old patient in rehabilitation unit with left hip fracture. She still has mild decreased mobility, decreased physical functioning, and insomnia, mild muscle spasms, nausea, and had constipation which has been resolved, risk of deep vein thrombus and neuropathic pain . Plan: She will continue with physical and occupational therapy 3 hours a day, 5 of 7 days. She will continue all comorbid condition medications which have been listed. She is doing very well and may be discharged with outpatient physical therapy. BRANNON/JESSI Voice ID: [id number] Report ID: [id number]
[2024-06-19 06:57] LABS: Absolute Basophils 0.1 K/uL (0-0.5); Absolute Eosinophils 0.2 K/uL (0-0.5); Absolute Lymphocytes (CBC) 1.9 K/uL (0.7-4.9); Absolute Monocytes 0.7 K/uL (0.1-1.3); Absolute Neutrophil 4.4 K/uL (1.8-8.0); Basophils % 0.8 % (0-1.3); Eosinophils % 2.7 % (0-4.4); Hematocrit 37.4 % (36.0-45.0); Hemoglobin 12.7 g/dL (12.0-15.0); Lymphocytes % 26.2 % (15.3-44.8); MCH 31.4 pg (27.0-35.0); MCV 92.4 fL (80-100); MPV 7.4 fL (7.6-11.3); Monocytes % 9.8 % (3.3-12.3); Neutrophils % 60.5 % (41.7-73.7); Platelets 290 thou/uL (152-406); RBC Red Blood Cell Count 4.05 M/uL (3.86-4.86); Red Cell Distribution Width 12.7 % (12.1-15.2)
[2024-06-19 07:14] LABS: Magnesium 2.5 mg/dL (1.6-2.4); Prealbumin 17.3 mg/dL (20-40)
--- NOTE | 2024-06-19 22:11 | PN ---
Date of Progress Note: 06/19/2024 Time Of Service: 1:35 p.m. Subjective: Ms. Espinoza is doing excellent with physical and occupational therapy. Daughter is at th e bedside. She has no complaints. She is very happy with therapy, ambulating very well, participati ng very well, ambulating without any significant pain in her left femoral neck fracture site. Review of Systems: No fevers, chills, nausea, vomiting, myalgias, arthralgias. No rash. No complaints. Physical Examination: Vital Signs: Blood pressure 134/75, pulse of 77, respiratory rate 16, temperature 97.5, oxygen satur ation 97%. General: Ms. Espinoza again is resting comfortably. She is in no acute distress. HEENT: She is normocephalic, atraumatic. Sclerae anicteric. Oropharynx pink and moist. Neck: Supple. Chest: Clear. Heart: Regular. Extremities: She has no clubbing, cyanosis, or edema. Progress Made With Physical And Occupational Therapy: She is doing very well, ambulating 500 feet wi th modified independence, up and down 15 steps with modified independence, propel a wheelchair 250 fe et with independence, upper body dressing and lower body dressing done with next to independence. Plan: She will continue with physical and occupational therapy 3 hours a day, 5 of 7 days. Continue with medication management, which will include the [place] for controlling pain, Eliquis for DVT proph ylaxis, Lexapro for depression, Zetia for cholesterol control, gabapentin for neuropathic pain, Milk of Magnesia for constipation, melatonin for insomnia, Robaxin for muscle spasms, Singulair for allergies, Zofran for nausea. BRANNON/JESSI Voice ID: [id number] Report ID: [id number]
--- NOTE | 2024-06-20 17:04 | P.RH.PN ---
Estimated Length of Stay: 9 Expected Discharge Date: 06/24/24 Discharge Disposition Plan: Home Family Support: Yes Resaw Tailer Goal: Mobility, Transfers, Self Care Vital Signs: Last Vital Signs Temp 97.6 F 06/20/24 07:48 Pulse 88 06/20/24 07:48 Resp 17 06/20/24 07:48 BP 127/59 L 06/20/24 07:48 Pulse Ox 98 06/20/24 07:48 Laboratory: Laboratory Last Values WBC 7.30 thou/uL (4.3-10.9) 06/19/24 06:37 RBC 4.05 M/uL (3.86-4.86) 06/19/24 06:37 Hgb 12.7 g/dL (12.0-15.0) 06/19/24 06:37 Hct 37.4 % (36.0-45.0) 06/19/24 06:37 MCV 92.4 fL (80-100) 06/19/24 06:37 MCH 31.4 pg (27.0-35.0) 06/19/24 06:37 MCHC 34.0 g/dL (32.0-36.0) 06/19/24 06:37 RDW 12.7 % (12.1-15.2) 06/19/24 06:37 Plt Count 290 thou/uL (152-406) 06/19/24 06:37 MPV 7.4 fL (7.6-11.3) L 06/19/24 06:37 Neutrophils % 60.5 % (41.7-73.7) 06/19/24 06:37 Lymphocytes % 26.2 % (15.3-44.8) 06/19/24 06:37 Monocytes % 9.8 % (3.3-12.3) 06/19/24 06:37 Eosinophils % 2.7 % (0-4.4) 06/19/24 06:37 Basophils % 0.8 % (0-1.3) 06/19/24 06:37 Absolute Neutrophils 4.4 K/uL (1.8-8.0) 06/19/24 06:37 Absolute Lymphocytes 1.9 K/uL (0.7-4.9) 06/19/24 06:37 Absolute Monocytes 0.7 K/uL (0.1-1.3) 06/19/24 06:37 Absolute Eosinophils 0.2 K/uL (0-0.5) 06/19/24 06:37 Absolute Basophils 0.1 K/uL (0-0.5) 06/19/24 06:37 Sodium 138 mEq/L (136-145) 06/19/24 06:37 Potassium 4.0 mEq/L (3.5-5.1) 06/19/24 06:37 Chloride 106 mEq/L (98-107) 06/19/24 06:37 Carbon Dioxide 28 mEq/L (21-32) 06/19/24 06:37 Anion Gap 8.0 mEq/L (5.0-15.0) 06/19/24 06:37 BUN 15 mg/dL (7-18) 06/19/24 06:37 Creatinine 0.64 mg/dL (0.55-1.02) 06/19/24 06:37 Est GFR (CKD-EPI) 93 ml/min (=/>90) 06/19/24 06:37 Glucose 103 mg/dL (74-106) 06/19/24 06:37 Calcium 8.8 mg/dL (8.5-10.1) 06/19/24 06:37 Magnesium 2.5 mg/dL (1.6-2.4) H 06/19/24 06:37 Albumin 3.0 g/dL (3.4-5.0) L 06/19/24 06:37 Prealbumin 17.3 mg/dL (20-40) L 06/19/24 06:37 Urine Color Colorless (Yellow) 06/16/24 22:15 Urine Clarity Clear (Clear) 06/16/24 22:15 Urine pH 7.5 (5.0-7.0) H 06/16/24 22:15 Ur Specific [place] 1.008 (1.005-1.030) 06/16/24 22:15 Glucose (UA)(Auto) Negative (Negative) 06/16/24 22:15 Urine Ketones Negative (Negative) 06/16/24 22:15 Urine Blood Negative (Negative) 06/16/24 22:15 Urine Nitrite Negative (Negative) 06/16/24 22:15 Urine Bilirubin Negative (Negative) 06/16/24 22:15 Urine Urobilinogen Normal (Normal) 06/16/24 22:15 Ur Leukocyte Esterase Negative Jessica/uL (Negative) 06/16/24 22:15 Urine RBC <5 /HPF (None Seen) 06/16/24 22:15 Urine WBC <5 /HPF (<5) 06/16/24 22:15 Ur Squamous Epith Cells None seen /HPF (None Seen) 06/16/24 22:15 Urine Bacteria None seen /HPF (<20) 06/16/24 22:15 Urine Culture Reflexed Not needed 06/16/24 22:15 Urine Total Protein Negative (Negative) 06/16/24 22:15 Weight: 115 lb Wound Present: No Closed Surgical Incision Present: Yes Physician Update: Her labs were reviewed and are stable. She has mildly elevated magnesium of 2.5. Her albumin is slightly low at 17.3. Her pain is well managed. She ambulated 800 feet with standby assistance using a rolling walker. Her bed mobility was done with standby assistance. She met all goals with occupational therapy. Comment: foam dressing D/I on left hip Summary: Patient's care plan and alf goals have been reviewed and revised as necessary. Please see the Rehabilitation Signature page for all necessary signatures.
[2024-06-20] MEDS ORDERED: LOPERAMIDE HCL 2 MG CAPSULE ONE (19:46)
[2024-06-20] MEDS: LOPERAMIDE HCL 2 MG CAPSULE PO PRN (19:58)
--- NOTE | 2024-06-24 00:28 | PN ---
Date of Progress Note: 06/23/2024 Time Of Service: 1:25 p.m. Subjective: Ms. Espinoza is sitting at the side of bed. She is very happy with all of her therapy so far. She has no new complaints. She is ready for discharge home and will continue therapy via outnm tient services. She has a left femoral neck fracture with no issues. Objective: In terms of review of systems, no fevers, chills, nausea, vomiting, myalgias, arthralgias , rash, headache. No other complaints. Physical Examination: Vital Signs: Her blood pressure is 131/58, pulse 75, respiratory rate 16, temperature 97.6, oxygen s aturation 97%. General: Again, Ms. Espinoza is doing very well. She is resting comfortably. HEENT: She is normocephalic, atraumatic. Sclerae anicteric. Oropharynx pink, moist. Neck: Supple. Chest: Clear. Heart: Regular. Extremities: She has no significant edema, clubbing, or cyanosis in either lower extremities. Laboratory Studies: No new laboratory studies. X-ray/imaging: No new x-rays or imaging. Medications: Medications reviewed and are unchanged. Assessment/plan: She will continue with all comorbid condition medications including Lexapro for dep ression, Zetia for cholesterol control, Eliquis for DVT prophylaxis, Imodium for diarrhea, muscle spa sms treated with Robaxin. She has Zofran for nausea. Again, she will be discharged in the morning t o continue therapy via outpatient physical therapy. All medications will be continued and follow up with Orthopedic Surgery as schedul ed. BRANNON/JESSI Voice ID: [id number] Report ID: [id number]
[2024-06-24 08:47] VITALS: BP 138/60; TEMP 98
== END 2024-06-24 14:20 | disposition home or self-care (01) | DRG 561 ==
LOC: 5TH 22:02
PROVIDERS: ADMIT Psychiatry & Neurology Neurology with Special Qualifications in Child Neurology; ATTEND Psychiatry & Neurology Neurology with Special Qualifications in Child Neurology
DX: S72.002D Fracture of unspecified part of neck of left femur, subsequent encounter for closed fracture with routine healing (principal); E78.5 Hyperlipidemia, unspecified; F41.9 Anxiety disorder, unspecified; K59.00 Constipation, unspecified; D64.9 Anemia, unspecified; G47.00 Insomnia, unspecified; M62.838 Other muscle spasm; F32.A Depression, unspecified; R11.0 Nausea
CPT/HCPCS: 36415; 80048; 81001; 82040; 83735; 84134; 85025; 87086; 87088; 97110; 97112; 97116; 97163; 97165; 97530